=== PATIENT | female | born 1960 | race Caucasian/White ===

== ENCOUNTER 2021-03-08 16:13 | Emergency (ER) | payer OTHER ==
[~2021-03-08] VITALS: Ht 167.6 cm; Wt 70.3 kg
[~2021-03-08 16:13] MED LIST: ATORVASTATIN CA40 MG PO; CHILDREN'S ASPI81 M1 PO; CLONAZEPAM 1 MG1 M1 PO; EFFEXOR XR150 MG PO; GEODON80 MG PO; K-DUR 20 MEQ T20 MEQ PO; LATUDA20 MG PO; LISINOPRIL PO; LISINOPRIL10 MG PO; MECLIZINE HCL25 M1 PO; NORCO 5-325 TA1 EACH PO; OXYCONTIN10 M1 PO; PRAVACHOL80 MG PO; PRAVASTATIN SOD40 MG PO; PRILOSEC 20 MG20 MG PO; SYNTHROID88 MCG PO; VALIUM2 MG PO; [UNRECOGNIZED DRUG - OTHER]
[2021-03-08] MEDS ORDERED: EFFEXOR XR75 MG PO (16:38)
[2021-03-08] MEDS ORDERED: KLONOPIN1 MG PO (17:17)
[2021-03-08 17:34] VITALS: BP 107/100
== END 2021-03-08 17:34 | disposition home or self-care (01) ==
LOC: M.ERS 16:13
DX: R11.2 Nausea with vomiting, unspecified (principal); R19.7 Diarrhea, unspecified; F32.9 Major depressive disorder, single episode, unspecified; F41.9 Anxiety disorder, unspecified; I11.0 Hypertensive heart disease with heart failure; I50.9 Heart failure, unspecified; G43.909 Migraine, unspecified, not intractable, without status migrainosus; Z76.0 Encounter for issue of repeat prescription; Z98.51 Tubal ligation status; Z90.89 Acquired absence of other organs; Z79.899 Other long term (current) drug therapy; Z90.710 Acquired absence of both cervix and uterus; Z88.5 Allergy status to narcotic agent